=== PATIENT | male | born 1980 | race Two or more races ===

== ENCOUNTER 2016-12-30 21:21 | Inpatient (IN) | payer SELFPAY ==
[~2016-12-30] VITALS: Ht 175.3 cm; Wt 79.4 kg
[2016-12-30] MEDS ORDERED: Cefepime HCl 1 GM in NS 55 ML IV STA (21:38)
[2016-12-30] MEDS ORDERED: metroNIDAZOLE 500mg 100 ML IV STA (21:38)
[2016-12-30] MEDS ORDERED: Vancomycin 1 GM in NS 275 ML IV ONE (21:45)
[2016-12-30] MEDS ORDERED: HYDROmorphone 1 MG in NS 55 ML IV ONE (21:45)
[2016-12-30] MEDS ORDERED: HYDROmorphone 1mg/ml Carpuject ONE (22:13)
[2016-12-30] MEDS ORDERED: HYDROmorphone 1mg/ml Carpuject IVP ONE ×2 (22:15→23:30)
[2016-12-30 22:19] VITALS: BP 150/118
[2016-12-30] MEDS ORDERED: Cefepime 1gm vial ONE (22:22)
[2016-12-30 22:35] LABS: APPEARANCE,URINE CLEAR; KETONES,URINE NEGATIVE (NEGATIVE); LEUKOCYTE ESTERASE ,URINE 1+ (NEGATIVE); MEAN CORPUSCULAR HEMOGLOBIN 29.4 PG (27.0-31.0); MEAN CORPUSCULAR HGB CONC 33.8 G/DL (32.0-36.0); MEAN CORPUSCULAR VOLUME 87 FL (80-99); MEAN PLATELET VOLUME 7.9 FL (6.5-10.1); NITRITE,URINE NEGATIVE (NEGATIVE); PH,URINE 9 (4.5-8.0); PLATELET COUNT 131 K/UL (150-450); PROTEIN,URINE NEGATIVE (NEGATIVE); RED BLOOD COUNT 3.95 M/UL (4.70-6.10); RED CELL DISTRIBUTION WIDTH 15.8 % (11.6-14.8); UROBILINOGEN,URINE NORMAL MG/DL (0.0-1.0)
[2016-12-30 22:42] LABS: PROTHROMBIN TIME 10.2 SEC (9.30-11.50)
[2016-12-30 22:45] LABS: WHITE BLOOD COUNT 27.2 K/UL (4.8-10.8)
[2016-12-30 22:48] LABS: RBC,URINE 0-2 /HPF (0 - 0)
[2016-12-30 22:49] LABS: BACTERIA,URINE FEW /HPF
[2016-12-30 22:52] LABS: ALANINE AMINOTRANSFERASE 39 U/L (3-41); ALBUMIN/GLOBULIN RATIO 1.3 (1.0-2.7); ANION GAP 20 (5-15); ASPARTATE AMINO TRANSFERASE 53 U/L (5-40); CALCIUM 10.3 mg/dL (8.6-10.2); CARBON DIOXIDE 24 mEQ/L (20-30); CHLORIDE 94 mEQ/L (98-107); CREATININE 0.9 mg/dL (0.7-1.2); GLOMERULAR FILTRATION RATE > 60 mL/min (>60); HEMOLYSIS 44; LIPASE 17 U/L (< 60); POTASSIUM 3.9 mEQ/L (3.4-4.9); SODIUM 138 mEQ/L (135-145); TOTAL PROTEIN 8.2 g/dL (6.6-8.7)
[2016-12-30 22:57] LABS: REFLEX LACTIC ACID YES OR NO YES
[2016-12-30 23:17] LABS: BASOPHILS % (MANUAL) 2 % (0-2); LYMPHOCYTES % (MANUAL) 8 % (20-45); NEUTROPHILS % (MANUAL) 7 % (45-75); TOTAL CELLS COUNTED 100
[2016-12-30 23:18] LABS: ANISOCYTOSIS 1+; BAND NEUTROPHILS % (MANUAL) 0 % (0-8); BLAST% 77 % (0-0); EOSINOPHILS % (MANUAL) 0 % (0-3); HYPOCHROMASIA 1+; NUCLEATED RED BLOOD CELLS 4 /100 WBC; PLATELET ESTIMATE DECREASED; PLATELET MORPHOLOGY NORMAL
[2016-12-30 23:19] LABS: PATH BLOOD SMEAR/OMC SENT TO PATHOLOGIST
[2016-12-30 23:35] VITALS: BP 136/84
[2016-12-31] VITALS (8 sets, daily range): BP systolic 115–150; BP diastolic 61–100
[2016-12-31] MEDS ORDERED: NKM (00:09)
[2016-12-31] MEDS ORDERED: Vancomycin 1gm inj IVPB ONE (00:18)
[2016-12-31] MEDS ORDERED: Zolpidem 5mg tab ORAL PRN (01:00)
[2016-12-31] MEDS ORDERED: HYDROmorphone 1mg/ml Carpuject IVP PRN (01:00)
[2016-12-31] MEDS ORDERED: Vancomycin 1.5 GM in D5W 325 ML IVPB SCH (01:30)
--- NOTE | 2016-12-31 02:13 | Emergency Room Report ---
History of Present Illness General Chief Complaint: Abdominal Pain Source: Family Member Present Illness HPI 36-year-old male presents ED for evaluation. Patient states she's been having abdominal pain times one day. Pain is left-sided, 10 out of 10, nonradiating. Denies nausea or vomiting. Denies fevers or chills. Denies chest pain or shortness of breath. Patient has history of AML; patient last of blood work shows markedly elevated white count above baseline. No other aggravating or relieving factors. Denies any other associated symptoms Allergies: Coded Allergies: No Known Allergies (Unverified , 12/30/16) Patient History Past Medical History: other - AML Past Surgical History: none Pertinent Family History: none Social History: Denies: alcohol use, drug use, smoking Immunizations: UTD Reviewed Nursing Documentation: PMH: Agreed, PSxH: Agreed Review of Systems All Other Systems: negative except mentioned in HPI Physical Exam Vital Signs Date Time Temp Pulse Resp B/P Pulse Ox O2 Delivery O2 Flow Rate FiO2 12/30/16 21:27 98.2 77 20 138/85 96 Room Air Sp02 EP Interpretation: reviewed, normal General Appearance: alert, GCS 15, non-toxic, mild distress Head: normocephalic, atraumatic Eyes: bilateral eye PERRL, bilateral eye normal inspection ENT: hearing grossly normal, normal pharynx, no angioedema, normal voice Neck: full range of motion, supple/symm/no masses Respiratory: chest non-tender, lungs clear, normal breath sounds, speaking full sentences Cardiovascular #1: regular rate, rhythm, no edema Cardiovascular #2: 2+ carotid (R), 2+ carotid (L), 2+ radial (R), 2+ radial (L) , 2+ dorsalis pedis (R), 2+ dorsalis pedis (L) Gastrointestinal: normal bowel sounds, soft, non-distended, no guarding, no rebound, tenderness Rectal: deferred Genitourinary: normal inspection, no CVA tenderness Musculoskeletal: back normal, gait/station normal, normal range of motion, non- tender Neurologic: alert, oriented x3, responsive, motor strength/tone normal, sensory intact, speech normal Psychiatric: judgement/insight normal, memory normal, mood/affect normal, no suicidal/homicidal ideation Reflexes: 3+ bicep (R), 3+ bicep (L), 3+ tricep (R), 3+ tricep (L), 3+ knee (R) , 3+ knee (L) Skin: normal color, no rash, warm/dry, well hydrated Lymphatic: no adenopathy Medical Decision Making Diagnostic Impression: Primary Impression: Abdominal pain Qualified Codes: R10.32 - Left lower quadrant pain Additional Impressions: Leukemia Qualified Codes: C95.90 - Leukemia, unspecified not having achieved remission Sepsis Qualified Codes: A41.9 - Sepsis, unspecified organism Enteritis ER Course Hospital Course 36-year-old male presents to ED with left-sided abdominal pain. History of leukemia Differential diagnoses include: sepsis, splenomegaly, obstruction Clinical course Patient placed on stretcher. compliance monitor. After initial history and physical I ordered labs, IV fluids, UA, pain medication and CT scan Labs - marked leukocytosis, Hb/Hct stable. electrolytres ok, lactate 2.7 EKG - NSR, no acute changes interpreted by ne CT shows some edema surrounding the left adrenal gland. Small bowel thickening suggestive of enteritis Patient given 30 cc/kg fluid bolus. Given broad-spectrum antibiotics Case discussed with Dr. Dominguez and he agreed to accept the patient to his service for further care and support I feel this is a highly complex case requiring extensive working including EKG/ Rhythm strip, Xray/CT/US, Blood/urine lab work, repeat exams while in ED, and administration of strong opiates/narcotics for pain control, admission to hospital or close patient follow up. Diagnosis - abdominal pain, leukemia, sepsis, enteritis Patient admitted to floor in serious condition Labs Test 12/30/16 21:50 12/30/16 23:12 White Blood Count 27.2 K/UL (4.8-10.8) Red Blood Count 3.95 M/UL (4.70-6.10) Hemoglobin 11.6 G/DL (14.2-18.0) Hematocrit 34.3 % (42.0-52.0) Mean Corpuscular Volume 87 FL (80-99) Mean Corpuscular Hemoglobin 29.4 PG (27.0-31.0) Mean Corpuscular Hemoglobin Concent 33.8 G/DL (32.0-36.0) Red Cell Distribution Width 15.8 % (11.6-14.8) Platelet Count 131 K/UL (150-450) Mean Platelet Volume 7.9 FL (6.5-10.1) Neutrophils (%) (Auto) % (45.0-75.0) Lymphocytes (%) (Auto) % (20.0-45.0) Monocytes (%) (Auto) % (1.0-10.0) Eosinophils (%) (Auto) % (0.0-3.0) Basophils (%) (Auto) % (0.0-2.0) Differential Total Cells Counted 100 Neutrophils % (Manual) 7 % (45-75) Lymphocytes % (Manual) 8 % (20-45) Monocytes % (Manual) 6 % (1-10) Eosinophils % (Manual) 0 % (0-3) Basophils % (Manual) 2 % (0-2) Blast Cells % 77 % (0-0) Band Neutrophils 0 % (0-8) Nucleated Red Blood Cells 4 /100 WBC Platelet Estimate Decreased Platelet Morphology Normal Hypochromasia 1+ Anisocytosis 1+ Prothrombin Time 10.2 SEC (9.30-11.50) Prothromb Time International Ratio 1.0 (0.9-1.1) Activated Partial Thromboplast Time 26 SEC (23-33) Urine Color Pale yellow Urine Appearance Clear Urine pH 9 (4.5-8.0) Urine Specific [place] 1.010 (1.005-1.035) Urine Protein Negative (NEGATIVE) Urine Glucose (UA) Negative (NEGATIVE) Urine Ketones Negative (NEGATIVE) Urine Occult Blood Negative (NEGATIVE) Urine Nitrite Negative (NEGATIVE) Urine Bilirubin Negative (NEGATIVE) Urine Urobilinogen Normal MG/DL (0.0-1.0) Urine Leukocyte Esterase 1+ (NEGATIVE) Urine RBC 0-2 /HPF (0 - 0) Urine WBC 2-4 /HPF (0 - 0) Urine Squamous Epithelial Cells None /LPF (NONE/OCC) Urine Bacteria Few /HPF (NONE) Sodium Level 138 mEQ/L (135-145) Potassium Level 3.9 mEQ/L (3.4-4.9) Chloride Level 94 mEQ/L (98-107) Carbon Dioxide Level 24 mEQ/L (20-30) Anion Gap 20 (5-15) Blood Urea Nitrogen 13 mg/dL (7-23) Creatinine 0.9 mg/dL (0.7-1.2) Estimat Glomerular Filtration Rate > 60 mL/min (>60) Glucose Level 131 mg/dL (74-106) Lactic Acid Level 2.70 mmol/L (0.66-2.22) 1.70 mmol/L (0.66-2.22) Calcium Level 10.3 mg/dL (8.6-10.2) Total Bilirubin 0.3 mg/dL (0.0-1.2) Aspartate Amino Transf (AST/SGOT) 53 U/L (5-40) Alanine Aminotransferase (ALT/SGPT) 39 U/L (3-41) Alkaline Phosphatase 109 U/L (40-129) Pro-B-Type Natriuretic Peptide 175 pg/mL (0-125) Total Protein 8.2 g/dL (6.6-8.7) Albumin 4.7 g/dL (3.5-5.2) Globulin 3.5 g/dL Albumin/Globulin Ratio 1.3 (1.0-2.7) Lipase 17 U/L (< 60) EKG Diagnostic Results Rate: normal Rhythm: NSR ST Segments: no acute changes ASA given to the pt in ED: No Rhythm Strip Diag. Results EP Interpretation: yes Rhythm: NSR, no PVC's, no ectopy CT/MRI/US Diagnostic Results CT/MRI/US Diagnostic Results : Imaging Test Ordered: CT A/P Impression Edema surrounding the left adrenal gland. Small bowel thickening suggestive of enteritis Last Vital Signs Date Time Temp Pulse Resp B/P Pulse Ox O2 Delivery O2 Flow Rate FiO2 12/31/16 01:48 98.2 85 19 118/81 95 Room Air Status: improved Disposition: ADMITTED INPATIENT Condition: Serious Referrals: ROSY DOMINGUEZ (PCP) GIRISH PEACOCK M.D. Dec 31, 2016 02:13
[2016-12-31] MEDS: NS w/KCl 20mEq 1,000 ML IV SCH ×3 (03:27→20:38)
[2016-12-31] MEDS ORDERED: HYDROmorphone 1mg/ml Carpuject IVP ONE (06:00)
[2016-12-31] MEDS: metroNIDAZOLE 500mg 100 ML IVPB SCH ×3 (06:11→21:36)
[2016-12-31] MEDS: HYDROmorphone 1mg/ml Carpuject IVP PRN ×2 (08:47→11:36)
[2016-12-31] MEDS ORDERED: Heparin 5000 units/ml inj SUBQ SCH (09:00)
[2016-12-31] MEDS ORDERED: Cefepime HCl 1 GM in D5W 55 ML IVPB SCH ×2 (09:00→22:00)
--- NOTE | 2016-12-31 09:05 | Diagnostic Imaging Report ---
Clinical Indication: Abdominal pain, left lower quadrant pain, nausea, history of leukemia Technique: Patient given oral contrast. IV administration nonionic contrast. Venous phase spiral acquisition obtained through the abdomen and pelvis. Multiplanar reconstructions were generated. Total dose length product 1092 mGycm. CTDIvol(s) 17 mGy. Dose reduction achieved using automated exposure control Comparison: None Findings: Normal appendix. No evidence of diverticulosis or diverticulitis. No small bowel distention or small bowel wall thickening. The distal esophagus, stomach, duodenum are unremarkable. The gallbladder is surgically absent. The liver, bile ducts, pancreas are unremarkable. The spleen is borderline enlarged, measuring 13 cm long axis dimension. There is inflammation of the fat surrounding the left adrenal, and the left adrenal is diffusely somewhat prominent. The fat infiltration also abuts the upper pole of left kidney, but appears more closely related to the adrenal. The right adrenal is unremarkable. The kidneys are unremarkable. No retroperitoneal or mesenteric mass or adenopathy. No pelvic mass or adenopathy. The included lung bases demonstrate considerable posterior dependent atelectatic change. The heart is upper limits of normal in size. There is a calcified granuloma in the inferior left upper lobe. The bones are unremarkable. Impression: Unusual finding of thickening of the left adrenal with surrounding inflammatory change. This is a very unusual finding, inflammation or infection of the left adrenal should be considered. No other acute or significant abnormality demonstrated Borderline splenic Evidence of prior cholecystectomy graft bilateral basilar pulmonary parenchymal atelectatic changes Old granulomatous disease at the left lung base. This agrees with the preliminary interpretation provided overnight by [facility] teleradiology service. The CT scanner at [facility] is accredited by the [employer] and the scans are performed using protocols designed to limit radiation exposure to as low as reasonably achievable to attain images of sufficient resolution adequate for diagnostic evaluation.
[2016-12-31] MEDS: Vancomycin 1.5 GM in D5W 325 ML IVPB SCH ×2 (09:44→21:35)
--- NOTE | 2016-12-31 14:33 | Diagnostic Imaging Report ---
Indication: Chest pain Technique: One view of the chest Comparison: none Findings: Lungs and pleural spaces are clear. Heart size is normal. Inspiration is suboptimal Impression: No acute process
--- NOTE | 2016-12-31 16:17 | History & Physical ---
History and Physical History & Physicial Dictated for Int Med no. [id number]. ROSY DOMINGUEZ Dec 31, 2016 16:17
--- NOTE | 2016-12-31 16:19 | GI Initial Consult Note ---
History of Present Illness General Date patient seen: Dec 31, 2016 Time patient seen: 11:00 Reason for Hospitalization: Abdominal Pain Referring physician: JEFF DOMINGUEZ Reason for Consultation: ABDOMINAL PAIN Present Illness HPI 36-year-old male presents ED for evaluation. Patient states she's been having abdominal pain times one day. Pain is left-sided, 10 out of 10, nonradiating. Denies nausea or vomiting. Denies fevers or chills. Denies chest pain or shortness of breath. Patient has history of AML; patient last of blood work shows markedly elevated white count above baseline. No other aggravating or relieving factors. Denies any other associated symptoms GI Consult. HPI as noted above. GI consulted for abdominal pain with preliminary dx of enteritis on CT. Pt was seen on floor, awake A&Ox4 NAD with c /o of LUQ pain tender to touch. He presents today with leukocytosis WBC 27, anemia and transaminitis. APCT reviewed "no small bowel distention or small bowel wall thickening. The distal esophagus, stomach, duodenum are unremarkable. In addition, Unusual finding of thickening of the left adrenal with surrounding inflammatory change. This is a very unusual finding, inflammation or infection of the left adrenal should be considered". Lipase was unremarkable. This patient has no history of endoscopic procedures. Home Meds Reported Medications No Known Medications* (NKM - No Known Medications*) ., 0 ., 0 Refills 12/31/16 Med list reviewed/reconciled: Yes Allergies: Coded Allergies: No Known Allergies (Unverified , 12/30/16) Patient History History Provided By: Patient, Medical Record PMH Narrative Past Medical History: other - AML Past Surgical History: none Pertinent Family History: none Social History: Denies: alcohol use, drug use, smoking Immunizations: UTD Reviewed Nursing Documentation: PMH: Agreed, PSxH: Agreed Social History: Denies: alcohol use, drug use, other, smoking Review of Systems All Other Systems: negative except mentioned in HPI Physical Exam Vital Signs Date Time Temp Pulse Resp B/P Pulse Ox O2 Delivery O2 Flow Rate FiO2 12/30/16 21:27 98.2 77 20 138/85 96 Room Air Sp02 EP Interpretation: reviewed Labs Laboratory Tests Test 12/30/16 21:50 12/30/16 23:12 White Blood Count 27.2 K/UL (4.8-10.8) *H Red Blood Count 3.95 M/UL (4.70-6.10) L Hemoglobin 11.6 G/DL (14.2-18.0) L Hematocrit 34.3 % (42.0-52.0) L Mean Corpuscular Volume 87 FL (80-99) Mean Corpuscular Hemoglobin 29.4 PG (27.0-31.0) Mean Corpuscular Hemoglobin Concent 33.8 G/DL (32.0-36.0) Red Cell Distribution Width 15.8 % (11.6-14.8) H Platelet Count 131 K/UL (150-450) L Mean Platelet Volume 7.9 FL (6.5-10.1) Neutrophils (%) (Auto) % (45.0-75.0) Lymphocytes (%) (Auto) % (20.0-45.0) Monocytes (%) (Auto) % (1.0-10.0) Eosinophils (%) (Auto) % (0.0-3.0) Basophils (%) (Auto) % (0.0-2.0) Differential Total Cells Counted 100 Neutrophils % (Manual) 7 % (45-75) L Lymphocytes % (Manual) 8 % (20-45) L Monocytes % (Manual) 6 % (1-10) Eosinophils % (Manual) 0 % (0-3) Basophils % (Manual) 2 % (0-2) Blast Cells % 77 % (0-0) *H Band Neutrophils 0 % (0-8) Nucleated Red Blood Cells 4 /100 WBC Platelet Estimate Decreased L Platelet Morphology Normal Hypochromasia 1+ Anisocytosis 1+ Prothrombin Time 10.2 SEC (9.30-11.50) Prothromb Time International Ratio 1.0 (0.9-1.1) Activated Partial Thromboplast Time 26 SEC (23-33) Urine Color Pale yellow Urine Appearance Clear Urine pH 9 (4.5-8.0) Urine Specific [place] 1.010 (1.005-1.035) Urine Protein Negative (NEGATIVE) Urine Glucose (UA) Negative (NEGATIVE) Urine Ketones Negative (NEGATIVE) Urine Occult Blood Negative (NEGATIVE) Urine Nitrite Negative (NEGATIVE) Urine Bilirubin Negative (NEGATIVE) Urine Urobilinogen Normal MG/DL (0.0-1.0) Urine Leukocyte Esterase 1+ (NEGATIVE) H Urine RBC 0-2 /HPF (0 - 0) H Urine WBC 2-4 /HPF (0 - 0) Urine Squamous Epithelial Cells None /LPF (NONE/OCC) Urine Bacteria Few /HPF (NONE) Sodium Level 138 mEQ/L (135-145) Potassium Level 3.9 mEQ/L (3.4-4.9) Chloride Level 94 mEQ/L (98-107) L Carbon Dioxide Level 24 mEQ/L (20-30) Anion Gap 20 (5-15) H Blood Urea Nitrogen 13 mg/dL (7-23) Creatinine 0.9 mg/dL (0.7-1.2) Estimat Glomerular Filtration Rate > 60 mL/min (>60) Glucose Level 131 mg/dL (74-106) H Lactic Acid Level 2.70 mmol/L (0.66-2.22) H 1.70 mmol/L (0.66-2.22) Calcium Level 10.3 mg/dL (8.6-10.2) H Total Bilirubin 0.3 mg/dL (0.0-1.2) Aspartate Amino Transf (AST/SGOT) 53 U/L (5-40) H Alanine Aminotransferase (ALT/SGPT) 39 U/L (3-41) Alkaline Phosphatase 109 U/L (40-129) Pro-B-Type Natriuretic Peptide 175 pg/mL (0-125) H Total Protein 8.2 g/dL (6.6-8.7) Albumin 4.7 g/dL (3.5-5.2) Globulin 3.5 g/dL Albumin/Globulin Ratio 1.3 (1.0-2.7) Lipase 17 U/L (< 60) General Appearance: well appearing, no apparent distress, alert Head: normocephalic EENT: PERRL/EOMI, normal ENT inspection Neck: supple Respiratory: normal breath sounds, no respiratory distress Cardiovascular: normal rate Gastrointestinal: normal inspection, non tender, soft, normal bowel sounds Musculoskeletal: normal inspection, back normal Neurologic: normal inspection, alert, oriented x3, responsive Psychiatric: normal inspection, judgement/insight normal, memory normal Skin: normal inspection, normal color, no rash, warm/dry Lymphatic: normal inspection, no adenopathy Current Medications Current Medications Medications (Trade) Dose Ordered Sig/[place] Route PRN Reason Start Time Stop Time Status Last Admin Dose Admin Acetaminophen (Tylenol) 650 mg Q4H PRN ORAL Mild Pain (Pain Scale 1-3) 12/31/16 01:00 01/30/17 00:59 Cefepime HCl/ Dextrose (Maxipime/D5W) 55 ml @ 110 mls/hr Q12H IVPB 12/31/16 22:00 01/07/17 21:59 Dextrose (Dextrose 50%) STAT PRN IV Hypoglycemia 12/31/16 01:00 01/30/17 00:59 Diphenhydramine HCl (Benadryl) 25 mg Q6H PRN ORAL Itching/Pruritis 12/31/16 01:00 01/30/17 00:59 Heparin Sodium (Porcine) (Heparin 5000 units/ml) 5,000 units EVERY 12 HOURS SUBQ 12/31/16 09:00 01/30/17 08:59 UNV Hydromorphone HCl (Dilaudid) 2 mg Q3H PRN IVP Shortness of breath 12/31/16 14:36 01/07/17 14:35 12/31/16 14:21 Metronidazole 100 ml @ 100 mls/hr Q8HR IVPB 12/31/16 06:00 01/07/17 05:59 12/31/16 13:20 Ondansetron HCl (Zofran) 4 mg EVERY 4 HOURS PRN IVP Nausea & Vomiting 12/31/16 01:00 01/30/17 00:59 Pantoprazole (Protonix) 40 mg DAILY ORAL 12/31/16 09:00 01/30/17 08:59 12/31/16 08:17 Sodium Chloride (NS w/KCl 20mEq) 1,000 ml @ 75 mls/hr [id number] IV 12/31/16 01:52 01/30/17 01:51 12/31/16 15:23 Vancomycin HCl 1.5 gm/Dextrose 325 ml @ 162.5 mls/ hr Q12H IVPB 12/31/16 09:00 01/05/17 08:59 12/31/16 09:44 Vancomycin HCl 1 ea 1 ea DAILY PRN MISC Per rx protocol 12/31/16 01:00 01/30/17 00:59 Zolpidem Tartrate (Ambien) 10 mg HSPRN PRN ORAL Insomnia 12/31/16 01:00 01/30/17 00:59 GI: Plan Problems: (1) Anemia (2) Abdominal pain (3) Enteritis (4) Leukemia (5) Sepsis Plan APCT reviewed >> Unusual finding of thickening of the left adrenal with surrounding inflammatory change. This is a very unusual finding, inflammation or infection of the left adrenal should be considered. No other acute or significant abnormality demonstrated. lipase WNL FLD, adv as tolerated pain mgmt abx monitor H&H, transfuse prn OB stool r/o GI bleed fu cdiff & stool studies H2B monitor LFTs fu labs Discussed with Dr. Duke. Thank you for referring this patient, we will follow. Rosangela Kaiser N.P. Dec 31, 2016 16:19
[2016-12-31 16:55] LABS: MEAN CORPUSCULAR HEMOGLOBIN 29.3 PG (27.0-31.0); MEAN CORPUSCULAR HGB CONC 34.7 G/DL (32.0-36.0); MEAN CORPUSCULAR VOLUME 84 FL (80-99); MEAN PLATELET VOLUME 7.8 FL (6.5-10.1); PLATELET COUNT 79 K/UL (150-450); RED BLOOD COUNT 3.45 M/UL (4.70-6.10); RED CELL DISTRIBUTION WIDTH 15.9 % (11.6-14.8)
[2016-12-31 16:59] LABS: WHITE BLOOD COUNT 37.2 K/UL (4.8-10.8)
[2016-12-31 17:04] LABS: ANION GAP 17 (5-15); CALCIUM 9.4 mg/dL (8.6-10.2); CARBON DIOXIDE 25 mEQ/L (20-30); CHLORIDE 94 mEQ/L (98-107); CREATININE 0.8 mg/dL (0.7-1.2); GLOMERULAR FILTRATION RATE > 60 mL/min (>60); HEMOLYSIS 2; POTASSIUM 3.6 mEQ/L (3.4-4.9); SODIUM 136 mEQ/L (135-145)
[2016-12-31 18:31] LABS: BAND NEUTROPHILS % (MANUAL) 2 % (0-8); BLAST% 85 % (0-0); LYMPHOCYTES % (MANUAL) 4 % (20-45); NEUTROPHILS % (MANUAL) 6 % (45-75); NUCLEATED RED BLOOD CELLS 1 /100 WBC; TOTAL CELLS COUNTED 100
[2016-12-31 18:32] LABS: ANISOCYTOSIS 1+; BASOPHILS % (MANUAL) 0 % (0-2); EOSINOPHILS % (MANUAL) 0 % (0-3); HYPOCHROMASIA 1+; PLATELET ESTIMATE DECREASED; PLATELET MORPHOLOGY NORMAL
--- NOTE | 2016-12-31 20:31 | History and Physical Report ---
DATE OF ADMISSION: 12/30/2016 CHIEF COMPLAINT: The patient is a 36-year-old male with history of acute myelogenous lymphoma presents with complaint of abdominal pain. HISTORY OF PRESENT ILLNESS: Began on 12/29/2016. The patient began to experience left-sided abdominal pain. The pain was diffuse. The patient states it felt like burning. The patient states the pain got worse on . Pain is now associated with nausea and vomiting. The patient also complaining of 10/10 left upper quadrant pain. The patient presented to [place] emergency room. The patient was admitted for left upper quadrant pain to rule out small obstruction versus gastroenteritis. PAST MEDICAL HISTORY: Significant for acute myelogenous leukemia, diagnosed in 2016. The patient has undergone four different types of chemotherapy in [place]. The patient is currently being followed at Hematology/Oncology at [facility]. The patient was just started a new chemotherapy regimen in [facility] this week. PAST SURGICAL HISTORY: Significant for cholecystectomy. CURRENT MEDICATIONS: The patient denies. ALLERGIES: No known drug allergies. 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 The patient denies tobacco or alcohol use. FAMILY HISTORY: Significant for Parkinson disease in the patient's mother. Family history significant for coronary artery disease in the patient's father at age 80. REVIEW OF SYSTEMS: Constitutional: The patient denies weight loss or weight gain. The patient complains of subjective fevers and chills. HEENT: The patient denies ear or throat pain. The patient denies headache. Cardiovascular: The patient denies palpitation or chest pain. Chest: The patient denies wheeze or shortness of breath. Abdomen: The patient complains of left upper and flank pain. The patient denies constipation. The patient complains of nausea and vomiting. The patient denies diarrhea. Genitourinary: The patient denies dysuria or increased frequency of urination. Neuromuscular: The patient denies seizures or generalized weakness. PHYSICAL EXAMINATION: VITAL SIGNS: Temperature 97.2 degrees, respirations 20, pulse 91, and blood pressure 140/80. GENERAL: The patient is well-developed and well-nourished white male, who is drowsy but arousable. HEENT: Eyes, pupils are equal and responsive to light and accommodation. Extraocular movements are intact. NECK: Supple without lymphadenopathy. CHEST: Lungs are clear to auscultation bilaterally without wheezes or rales. CARDIOVASCULAR: Slightly tachycardic. Regular rhythm. S1 and S2 normal without murmurs, rubs, or gallops. ABDOMEN: Soft, diffusely tender, and distended with decreased bowel sounds. No evidence of hepatosplenomegaly. No rebound or guarding. EXTREMITIES: Negative for clubbing, cyanosis, or edema. RECTAL: Refused. GENITAL: Refused. NEUROLOGIC: Cranial nerves II through XII are grossly intact without focal deficits. Motor strength is 5/5 bilaterally. Deep tendon reflexes are 2+ plantar. LABORATORY STUDIES: WBC 27.2, hemoglobin 11.6, hematocrit 34.2, and platelets 131,000. Sodium 138, potassium 3.9, chloride 94, CO2 24, BUN 13, creatinine 0.9, and glucose 131. Lactic acid elevated at 2.70. Urinalysis showed 1+ leukocyte esterase. CT scan of the abdomen and pelvis revealed left adrenal thickening and regional inflammation versus infection of the small bowel with thickening. ASSESSMENT: This is a 36-year-old male with, 1. Left upper quadrant abdominal pain. 2. Left flank pain. 3. Nausea with vomiting. 4. Leukocytosis. 5. Small bowel enteritis. 6. Left adrenal inflammation. 7. Acute myelogenous leukemia. TREATMENT: 1. Abdominal pain the left upper quadrant/left flank. A Gastroenterology consultation has been obtained with Dr. Cluadio Duke. The patient has been started empirically on intravenous vancomycin, cefepime, and Flagyl. We will follow recommendations of Gastroenterology. A Clostridium difficile titer is pending. A stool culture is pending. 2. Leukocytosis may be secondary to acute myelogenous leukemia versus reactive secondary to enteritis as above. 3. Enteritis as above. A Gastroenterology consultation has been obtained with Dr. Claudio Duke . Stool cultures are pending. Clostridium difficile is pending. 4. Left adrenal inflammation as above. The patient has been started empirically on intravenous vancomycin, cefepime, and Flagyl. A Nephrology consultation has been obtained with Dr. Nicholas. An ultrasound of bilateral kidneys are pending. 5. Acute myelogenous leukemia. Hematology and Oncology consultation with Dr. Glass. As above, the patient has been followed at [facility] by Dr. . The patient may need transfer to [facility] if need . Attila Wang M.D. DR: Kevin JOB#: [id number] CC:
--- NOTE | 2016-12-31 21:46 | Consultation ---
DATE OF CONSULTATION: 12/31/2016 HEMATOLOGY/ONCOLOGY CONSULTATION REQUESTING PHYSICIAN: Attila Wang M.D. REASON FOR CONSULTATION: Evaluation of acute myelogenous leukemia. IDENTIFICATION: Dear Dr. Attila Wang, The patient is a pleasant 36-year-old male who has been seen by Dr. Glass. The patient is a 36-year-old male who flew in from [place] several weeks ago, noted to have recent diagnosis of acute myelogenous leukemia. Further records are in the office; therefore, most of history is currently obtained from the chart. Dr. Attila Wang's note is pending at this moment. The patient presented with abdominal pain, 10/10 with elevated white count. Denies any chest pain, shortness of breath. History of ML again noted from before. The patient had a consult with GI service and enteritis was noted on CAT scan. The patient is awake, alert, and oriented x4, complaining of left upper quadrant pain, tender to touch. Hematology service was consulted for myelogenous leukemia history. PAST MEDICAL HISTORY: Acute myelogenous leukemia recently diagnosed, pending chemotherapy at [facility], Dr. Nadya Briscoe. PAST SURGICAL HISTORY: None noted. HOME MEDICATIONS: None. ALLERGIES: No known drug allergies. SOCIAL HISTORY: No alcohol, tobacco, or illicit drug use. FAMILY HISTORY: Noncontributory REVIEW OF SYSTEMS: Constitutional: No fever, chills, or night sweats. Skin: No rashes, lumps, or itching. HEENT: No headache, hearing, or vision changes. Breasts: No lumps, pain, or discharge. Pulmonary: No cough, sputum, or shortness of breath. Cardiovascular: No chest pain, tightness, or palpitations. Gastrointestinal: No nausea, vomiting, or diarrhea. Genitourinary: No dysuria, frequency, or urgency. Musculoskeletal: No joint swelling, muscle pain, or trauma. PHYSICAL EXAMINATION: GENERAL: The patient is in no acute distress. VITAL SIGNS: Reviewed. PULMONARY: Decreased breath sounds bilaterally. No crackles noted. CARDIOVASCULAR: Regular rhythm. No S3 or S4. GASTROINTESTINAL: Abdomen is soft; however, some tenderness to palpation in the left upper quadrant. EXTREMITIES: No cyanosis, clubbing, or edema. LABORATORY AND DIAGNOSTIC DATA: WBC of 30,000, hemoglobin 11.6, hematocrit 34, and platelet count of 131,000. ASSESSMENT: 1. Acute myelogenous leukemia, to receive chemotherapy with bone marrow transplant. Bone marrow transplant at [facility] at approximately a week with Dr. Nadya Briscoe. 2. Anemia secondary to acute myelogenous leukemia. 3. Anemia secondary to hemodilution. 4. Abdominal pain with enteritis. 5. Please review closely antibiotics. 6. Please start antibiotics given immunosuppressive state. 7. Please consider ID consult. 8. Sepsis, currently is on antibiotics. 9. Thrombocytopenia likely secondary to underlying acute myelogenous leukemia as well. 10. Glucose elevation of 131. 11. Lactic acidosis, improved. 12. Discussed with staff. Thank you, Dr. Attila Wang, for this kind referral. Please do not hesitate to contact me if you have any further questions. Bob Glass M.D. DR: Syed JOB#: [id number] CC:
--- NOTE | 2016-12-31 22:01 | Consultation ---
Consult Note Consult Note ID [id number] CARMELA HAWTHORNE M.D. Dec 31, 2016 22:01
--- NOTE | 2016-12-31 22:17 | Nephrology Progress Note ---
Assessment/Plan Problem List: (1) Anemia (2) Leukemia (3) Abdominal pain (4) Enteritis (5) Sepsis Assessment: ?? Elev WBC poss d/t AML Plan Will monitor renal function. Avoid nephrotoxic medications. Monitor I/O's. Will follow. thank.s Subjective Subjective 36 y/o m with hx AML undergoing chemotx now presents with abdominal pain/flank pain. Renal consulted for possible pyelonephritis. Objective Objective Last 24 Hour Vital Signs Date Time Temp Pulse Resp B/P Pulse Ox O2 Delivery O2 Flow Rate FiO2 12/31/16 19:25 97.7 99 19 121/79 91 Room Air 12/31/16 18:02 97.5 12/31/16 15:56 97.5 66 19 115/61 98 Room Air 12/31/16 12:35 97.0 79 19 130/77 93 Room Air 12/31/16 12:06 96.6 12/31/16 08:00 96.6 78 18 149/91 96 Room Air 12/31/16 04:00 98.1 87 18 146/100 96 Room Air 12/31/16 02:00 97.2 91 20 140/88 95 Room Air 12/31/16 01:48 98.2 85 19 118/81 95 Room Air 12/31/16 01:39 98.2 85 19 118/81 95 Room Air 12/31/16 00:05 97.2 12/30/16 23:35 98.2 88 21 136/84 96 Room Air 12/30/16 22:45 97.2 12/30/16 22:19 98.2 83 17 150/118 96 Room Air Intake and Output 12/30/16 12/31/16 19:00 07:00 Intake Total 3180 ml Output Total 1600 ml Balance 1580 ml IV Total 3180 ml Output Urine Total 1600 ml # Voids 1 Laboratory Tests 12/30/16 23:12: Lactic Acid Level 1.70 12/31/16 16:35: White Blood Count 37.2*H, Red Blood Count 3.45L, Hemoglobin 10.1L, Hematocrit 29.1L, Mean Corpuscular Volume 84, Mean Corpuscular Hemoglobin 29.3, Mean Corpuscular Hemoglobin Concent 34.7, Red Cell Distribution Width 15.9H, Platelet Count 79L, Mean Platelet Volume 7.8, Neutrophils (%) (Auto) , Lymphocytes (%) (Auto) , Monocytes (%) (Auto) , Eosinophils (%) (Auto) , Basophils (%) (Auto) , Differential Total Cells Counted 100, Neutrophils % ( Manual) 6L, Lymphocytes % (Manual) 4L, Monocytes % (Manual) 3, Eosinophils % ( Manual) 0, Basophils % (Manual) 0, Blast Cells % 85*H, Band Neutrophils 2, Nucleated Red Blood Cells 1, Platelet Estimate DecreasedL, Platelet Morphology Normal, Hypochromasia 1+, Anisocytosis 1+, Sodium Level 136, Potassium Level 3.6 , Chloride Level 94L, Carbon Dioxide Level 25, Anion Gap 17H, Blood Urea Nitrogen 8, Creatinine 0.8, Estimat Glomerular Filtration Rate > 60, Glucose Level 131H, Calcium Level 9.4 Height (Feet): 5 Height (Inches): 9.00 Weight (Pounds): 175 General Appearance: no apparent distress Cardiovascular: normal rate, regular rhythm Respiratory/Chest: lungs clear Abdomen: soft Extremities: non-pitting Neurologic: alert, oriented x 3 JONA ABRROW Dec 31, 2016 22:17
--- NOTE | 2017-01-01 00:46 | Consultation ---
DATE OF CONSULTATION: INFECTIOUS DISEASE CONSULTATION CONSULTING PHYSICIAN: Marbin Huerta M.D. REQUESTING PHYSICIAN: Attila Wang M.D. REASON FOR CONSULTATION: Evaluation of the patient for enteritis and antibiotic management. HISTORY OF PRESENT ILLNESS: The patient is a 36-year-old male, overall poor historian, who was admitted to this medical center due to abdominal pain in the left upper quadrant. The patient has a history of AML (acute myelogenous leukemia). The patient is under . An Infectious Disease consultation has been requested for further evaluation of the patient. PAST MEDICAL HISTORY: As mentioned above. PAST SURGICAL HISTORY: Significant for cholecystectomy. ALLERGIES: No known drug allergies. SOCIAL HISTORY: The patient is . No history of alcohol or drug abuse. FAMILY HISTORY: Not contributing. REVIEW OF SYSTEMS: HEENT: No recent change in vision or hearing. Pulmonary: No cough or shortness of breath. Cardiovascular: No chest pain or palpitation. Gastrointestinal/Abdomen: No nausea, vomiting, or diarrhea. PHYSICAL EXAMINATION: VITAL SIGNS: Temperature 97 degrees, blood pressure 140/80, pulse 86, and respiratory rate 18. HEENT: Mild pale conjunctiva. No icterus. NECK: No lymphadenopathy. CHEST: Coarse breath sounds. HEART: S1 and S2. ABDOMEN: Soft. The patient has mild left upper quadrant tenderness. NEUROLOGIC: Awake and alert. LABORATORY DATA: White blood cells 27, hemoglobin 11, and platelets 151,000. BUN 13 and creatinine 0.9. UA unremarkable. CT of the abdomen shows left adrenal gland thickening associated with inflammation. ASSESSMENT: 1. The patient is a 36-year-old male with leukocytosis due to acute myelogenous leukemia. 2. History of . 3. Left upper quadrant pain. CT scan showed evidence of left adrenal inflammation, less likely to be an infectious process. PLAN: 1. We will continue the patient on IV vancomycin and cefepime. 2. Monitor blood cultures. 3. Monitor stool culture. 4. Stool for C. diff. 5. Based on the patient's clinical course and labs, we will do further recommendations. Thank you, Dr. Wang, for allowing me to participate in the care of this patient. I will follow the patient with you during this hospitalization. Marbin Huerta M.D. DR: CAIO JOB#: [id number] CC:
[2017-01-01 04:24] VITALS: BP_SYST 100; BP_SYST 125; BP_DIAS 55; BP_DIAS 70
[2017-01-01] MEDS: metroNIDAZOLE 500mg 100 ML IVPB SCH (05:10)
[2017-01-01 06:57] LABS: MEAN CORPUSCULAR HEMOGLOBIN 28.8 PG (27.0-31.0); MEAN CORPUSCULAR HGB CONC 33.2 G/DL (32.0-36.0); MEAN CORPUSCULAR VOLUME 87 FL (80-99); MEAN PLATELET VOLUME 9.4 FL (6.5-10.1); PLATELET COUNT 81 K/UL (150-450); RED BLOOD COUNT 3.63 M/UL (4.70-6.10); RED CELL DISTRIBUTION WIDTH 15.9 % (11.6-14.8)
[2017-01-01 07:00] LABS: WHITE BLOOD COUNT 47.8 K/UL (4.8-10.8)
[2017-01-01 07:21] LABS: ANION GAP 19 (5-15); CALCIUM 9.5 mg/dL (8.6-10.2); CARBON DIOXIDE 25 mEQ/L (20-30); CHLORIDE 89 mEQ/L (98-107); CREATININE 0.9 mg/dL (0.7-1.2); GLOMERULAR FILTRATION RATE > 60 mL/min (>60); HEMOLYSIS 1; POTASSIUM 3.4 mEQ/L (3.4-4.9); SODIUM 133 mEQ/L (135-145)
[2017-01-01 07:26] LABS: HEMOLYSIS 4; IRON 37 ug/dL (59-158); TOTAL IRON BINDING CAPACITY 238 ug/dL (250-400)
[2017-01-01 08:19] VITALS: BP 137/98
--- NOTE | 2017-01-01 09:18 | Infectious Diseases Prog Note ---
Assessment/Plan Assessment/Plan A: The patient is a 36-year-old male ? Enteritis pt has no diarrhea at this time Left upper quadrant pain CT : Left adrenal gland thickening associated with inflammation ( doubt ID process, ? related to leukemia ) tachycardia Anemia Thrombocytopenia Leukocytosis due to acute myelogenous leukemia . PLAN: cont on cefepime and Flagyl d# 2 , ( may stop soon ) DC IV vancomycin d#2 Monitor blood cultures. Monitor stool culture. Stool for C. diff HIV Blood cx ( AFB and Fungal ) Histoplasma Ag andAb Rec Endo consult Hem/onc following Cardio following Echo and Doppler of lower Ext Subjective Allergies: Coded Allergies: No Known Allergies (Unverified , 12/30/16) Subjective acute onset Tachycardia Objective Vital Signs Last 24 Hour Vital Signs Date Time Temp Pulse Resp B/P Pulse Ox O2 Delivery O2 Flow Rate FiO2 01/01/17 08:19 98.4 123 22 137/98 95 Room Air 01/01/17 04:24 98.0 75 21 100/55 97 Room Air 12/31/16 19:25 97.7 99 19 121/79 91 Room Air 12/31/16 18:02 97.5 12/31/16 15:56 97.5 66 19 115/61 98 Room Air 12/31/16 12:35 97.0 79 19 130/77 93 Room Air 12/31/16 12:06 96.6 Height (Feet): 5 Height (Inches): 9.00 Weight (Pounds): 175 HEENT: anicteric Respiratory/Chest: no respiratory distress Cardiovascular: regularly irregular Abdomen: non distended Microbiology Date/Time Source Procedure Growth Status 12/30/16 21:50 Blood Blood Culture - Preliminary NO GROWTH AFTER 24 HOURS Resulted 12/30/16 21:30 Blood Blood Culture - Preliminary NO GROWTH AFTER 24 HOURS Resulted Laboratory Tests Test 12/31/16 16:35 01/01/17 04:50 01/01/17 08:30 White Blood Count 37.2 K/UL (4.8-10.8) *H 47.8 K/UL (4.8-10.8) *H Red Blood Count 3.45 M/UL (4.70-6.10) L 3.63 M/UL (4.70-6.10) L Hemoglobin 10.1 G/DL (14.2-18.0) L 10.4 G/DL (14.2-18.0) L Hematocrit 29.1 % (42.0-52.0) L 31.4 % (42.0-52.0) L Mean Corpuscular Volume 84 FL (80-99) 87 FL (80-99) Mean Corpuscular Hemoglobin 29.3 PG (27.0-31.0) 28.8 PG (27.0-31.0) Mean Corpuscular Hemoglobin Concent 34.7 G/DL (32.0-36.0) 33.2 G/DL (32.0-36.0) Red Cell Distribution Width 15.9 % (11.6-14.8) H 15.9 % (11.6-14.8) H Platelet Count 79 K/UL (150-450) L 81 K/UL (150-450) L Mean Platelet Volume 7.8 FL (6.5-10.1) 9.4 FL (6.5-10.1) Neutrophils (%) (Auto) % (45.0-75.0) % (45.0-75.0) Lymphocytes (%) (Auto) % (20.0-45.0) % (20.0-45.0) Monocytes (%) (Auto) % (1.0-10.0) % (1.0-10.0) Eosinophils (%) (Auto) % (0.0-3.0) % (0.0-3.0) Basophils (%) (Auto) % (0.0-2.0) % (0.0-2.0) Differential Total Cells Counted 100 Neutrophils % (Manual) 6 % (45-75) L Pending Lymphocytes % (Manual) 4 % (20-45) L Pending Monocytes % (Manual) 3 % (1-10) Eosinophils % (Manual) 0 % (0-3) Basophils % (Manual) 0 % (0-2) Blast Cells % 85 % (0-0) *H Band Neutrophils 2 % (0-8) Nucleated Red Blood Cells 1 /100 WBC Platelet Estimate Decreased L Pending Platelet Morphology Normal Pending Hypochromasia 1+ Anisocytosis 1+ Sodium Level 136 mEQ/L (135-145) 133 mEQ/L (135-145) L Potassium Level 3.6 mEQ/L (3.4-4.9) 3.4 mEQ/L (3.4-4.9) Chloride Level 94 mEQ/L (98-107) L 89 mEQ/L (98-107) L Carbon Dioxide Level 25 mEQ/L (20-30) 25 mEQ/L (20-30) Anion Gap 17 (5-15) H 19 (5-15) H Blood Urea Nitrogen 8 mg/dL (7-23) 7 mg/dL (7-23) Creatinine 0.8 mg/dL (0.7-1.2) 0.9 mg/dL (0.7-1.2) Estimat Glomerular Filtration Rate > 60 mL/min (>60) > 60 mL/min (>60) Glucose Level 131 mg/dL (74-106) H 113 mg/dL (74-106) H Calcium Level 9.4 mg/dL (8.6-10.2) 9.5 mg/dL (8.6-10.2) Iron Level 37 ug/dL (59-158) L Total Iron Binding Capacity 238 ug/dL (250-400) L Percent Iron Saturation 16 % (15-50) Unsaturated Iron Binding 201 ug/dL (112-346) Vancomycin Level Trough Pending Current Medications Medications (Trade) Dose Ordered Sig/Idalia Route PRN Reason Start Time Stop Time Status Last Admin Dose Admin Acetaminophen (Tylenol) 650 mg Q4H PRN ORAL Mild Pain (Pain Scale 1-3) 12/31/16 01:00 01/30/17 00:59 Cefepime HCl/ Dextrose (Maxipime/D5W) 55 ml @ 110 mls/hr Q12H IVPB 12/31/16 22:00 01/07/17 21:59 12/31/16 23:43 Dextrose (Dextrose 50%) STAT PRN IV Hypoglycemia 12/31/16 01:00 01/30/17 00:59 Diphenhydramine HCl (Benadryl) 25 mg Q6H PRN ORAL Itching/Pruritis 12/31/16 01:00 01/30/17 00:59 Hydromorphone HCl (Dilaudid) 3 mg Q3H PRN IVP mod-sev pain 12/31/16 23:36 01/07/17 23:35 01/01/17 05:58 Metronidazole 100 ml @ 100 mls/hr Q8HR IVPB 12/31/16 06:00 01/07/17 05:59 01/01/17 05:10 Ondansetron HCl (Zofran) 4 mg EVERY 4 HOURS PRN IVP Nausea & Vomiting 12/31/16 01:00 01/30/17 00:59 01/01/17 07:31 Pantoprazole (Protonix) 40 mg DAILY ORAL 12/31/16 09:00 01/30/17 08:59 01/01/17 07:55 Sodium Chloride (NS w/KCl 20mEq) 1,000 ml @ 75 mls/hr [id number] IV 12/31/16 01:52 01/30/17 01:51 12/31/16 20:38 Vancomycin HCl 1.5 gm/Dextrose 325 ml @ 162.5 mls/ hr Q12H IVPB 12/31/16 09:00 01/05/17 08:59 12/31/16 21:35 Vancomycin HCl 1 ea 1 ea DAILY PRN MISC Per rx protocol 12/31/16 01:00 01/30/17 00:59 Zolpidem Tartrate (Ambien) 10 mg HSPRN PRN ORAL Insomnia 12/31/16 01:00 01/30/17 00:59 CARMELA HAWTHORNE M.D. Jan 01, 2017 09:18
[2017-01-01] MEDS ORDERED: Hydroxyurea 500mg cap ORAL SCH ×2 (09:30)
[2017-01-01 09:50] LABS: ANISOCYTOSIS 1+; BAND NEUTROPHILS % (MANUAL) 0 % (0-8); BASOPHILS % (MANUAL) 0 % (0-2); BLAST% 82 % (0-0); EOSINOPHILS % (MANUAL) 0 % (0-3); HYPOCHROMASIA 1+; LYMPHOCYTES % (MANUAL) 8 % (20-45); NEUTROPHILS % (MANUAL) 6 % (45-75); NUCLEATED RED BLOOD CELLS 1 /100 WBC; PLATELET ESTIMATE DECREASED; PLATELET MORPHOLOGY NORMAL; TOTAL CELLS COUNTED 100
[2017-01-01] MEDS ORDERED: NS w/KCl 20mEq 1,000 ML IV SCH (10:00)
[2017-01-01] MEDS ORDERED: Cefepime HCl 1 GM in D5W 55 ML IVPB SCH (10:00)
--- NOTE | 2017-01-01 10:09 | Diagnostic Imaging Report ---
Indication: Acute renal failure, left-sided abdominal pain Technique: Grayscale and duplex images of the kidneys, retroperitoneum, and bladder were obtained. Comparison:Reference made to abdomen pelvis CT dated 12/30/2016 Findings: Right kidney measures 12.8 cm in length. Left kidney measures 12.6 cm in length. Both kidneys demonstrate normal echogenicity. No hydronephrosis. No focal abnormality. Poorly visualized inferior vena cava. Bladder is normal. 8mm prostate Impression: negative. Note inability to visualize inferior vena cava.
--- NOTE | 2017-01-01 10:50 | Cardiology Progress Note ---
Assessment/Plan Assessment/Plan acute onset of Sinus tachy leukemia with sig blast periadrenal inflammatory process of unknown etiology thrombocytopenia anemia no sx to suggest PE, however the etiology of the sinus tahcy of relatively sudden in onset is of concern fawad have venous duplex echo [id number] Objective Last 24 Hour Vital Signs Date Time Temp Pulse Resp B/P Pulse Ox O2 Delivery O2 Flow Rate FiO2 01/01/17 08:19 98.4 123 22 137/98 95 Room Air 01/01/17 04:24 98.0 75 21 100/55 97 Room Air 12/31/16 19:25 97.7 99 19 121/79 91 Room Air 12/31/16 18:02 97.5 12/31/16 15:56 97.5 66 19 115/61 98 Room Air 12/31/16 12:35 97.0 79 19 130/77 93 Room Air 12/31/16 12:06 96.6 Intake and Output 12/31/16 01/01/17 19:00 07:00 Intake Total 1560.0 ml 1345.0 ml Output Total 1150 ml Balance 1560.0 ml 195.0 ml Intake Oral 500 ml 240 ml IV Total 1060.0 ml 1105.0 ml Output Urine Total 1150 ml # Voids 6 Laboratory Tests Test 12/31/16 16:35 01/01/17 04:50 01/01/17 08:30 White Blood Count 37.2 K/UL (4.8-10.8) *H 47.8 K/UL (4.8-10.8) *H Red Blood Count 3.45 M/UL (4.70-6.10) L 3.63 M/UL (4.70-6.10) L Hemoglobin 10.1 G/DL (14.2-18.0) L 10.4 G/DL (14.2-18.0) L Hematocrit 29.1 % (42.0-52.0) L 31.4 % (42.0-52.0) L Mean Corpuscular Volume 84 FL (80-99) 87 FL (80-99) Mean Corpuscular Hemoglobin 29.3 PG (27.0-31.0) 28.8 PG (27.0-31.0) Mean Corpuscular Hemoglobin Concent 34.7 G/DL (32.0-36.0) 33.2 G/DL (32.0-36.0) Red Cell Distribution Width 15.9 % (11.6-14.8) H 15.9 % (11.6-14.8) H Platelet Count 79 K/UL (150-450) L 81 K/UL (150-450) L Mean Platelet Volume 7.8 FL (6.5-10.1) 9.4 FL (6.5-10.1) Neutrophils (%) (Auto) % (45.0-75.0) % (45.0-75.0) Lymphocytes (%) (Auto) % (20.0-45.0) % (20.0-45.0) Monocytes (%) (Auto) % (1.0-10.0) % (1.0-10.0) Eosinophils (%) (Auto) % (0.0-3.0) % (0.0-3.0) Basophils (%) (Auto) % (0.0-2.0) % (0.0-2.0) Differential Total Cells Counted 100 100 Neutrophils % (Manual) 6 % (45-75) L 6 % (45-75) L Lymphocytes % (Manual) 4 % (20-45) L 8 % (20-45) L Monocytes % (Manual) 3 % (1-10) 4 % (1-10) Eosinophils % (Manual) 0 % (0-3) 0 % (0-3) Basophils % (Manual) 0 % (0-2) 0 % (0-2) Blast Cells % 85 % (0-0) *H 82 % (0-0) *H Band Neutrophils 2 % (0-8) 0 % (0-8) Nucleated Red Blood Cells 1 /100 WBC 1 /100 WBC Platelet Estimate Decreased L Decreased L Platelet Morphology Normal Normal Hypochromasia 1+ 1+ Anisocytosis 1+ 1+ Sodium Level 136 mEQ/L (135-145) 133 mEQ/L (135-145) L Potassium Level 3.6 mEQ/L (3.4-4.9) 3.4 mEQ/L (3.4-4.9) Chloride Level 94 mEQ/L (98-107) L 89 mEQ/L (98-107) L Carbon Dioxide Level 25 mEQ/L (20-30) 25 mEQ/L (20-30) Anion Gap 17 (5-15) H 19 (5-15) H Blood Urea Nitrogen 8 mg/dL (7-23) 7 mg/dL (7-23) Creatinine 0.8 mg/dL (0.7-1.2) 0.9 mg/dL (0.7-1.2) Estimat Glomerular Filtration Rate > 60 mL/min (>60) > 60 mL/min (>60) Glucose Level 131 mg/dL (74-106) H 113 mg/dL (74-106) H Calcium Level 9.4 mg/dL (8.6-10.2) 9.5 mg/dL (8.6-10.2) Iron Level 37 ug/dL (59-158) L Total Iron Binding Capacity 238 ug/dL (250-400) L Percent Iron Saturation 16 % (15-50) Unsaturated Iron Binding 201 ug/dL (112-346) Histoplasma Mycelial Antibody Pending Histoplasma Antibody w Mycelial Ag Pending Histoplasma Antibody with Yeast Ag Pending HIV (1&2) Antibody Rapid Negative (NEGATIVE) Vancomycin Level Trough 8.7 ug/mL (5.0-12.0) Microbiology Date/Time Source Procedure Growth Status 12/30/16 21:50 Blood Blood Culture - Preliminary NO GROWTH AFTER 24 HOURS Resulted 12/30/16 21:30 Blood Blood Culture - Preliminary NO GROWTH AFTER 24 HOURS Resulted PAT VASQUEZ Jan 01, 2017 10:50
[2017-01-01 11:04] LABS: OTHERS PATHOLOGIST COMMENT
--- NOTE | 2017-01-01 11:40 | Diagnostic Imaging Report ---
Indication: DYSPNEA Technique: One view of the chest Comparison: 12/30/2016 Findings: There is right perihilar atelectasis. The lungs and pleural spaces are otherwise clear. Heart size is normal., The residual bowel contrast from prior CT scan is noted Impression: Right perihilar atelectasis. No acute process otherwise
[2017-01-01 12:00] VITALS: BP 128/78
--- NOTE | 2017-01-01 13:05 | GI Progress Note ---
Assessment/Plan Problems: (1) Sepsis ICD Codes: A41.9 - Sepsis, unspecified organism SNOMED: 88592208 Qualifiers: Qualified Codes: A41.9 - Sepsis, unspecified organism (2) Enteritis ICD Codes: K52.9 - Noninfective gastroenteritis and colitis, unspecified SNOMED: 38127510 (3) Leukemia ICD Codes: C95.90 - Leukemia, unspecified not having achieved remission SNOMED: 92935393 Qualifiers: Qualified Codes: C95.90 - Leukemia, unspecified not having achieved remission (4) Anemia ICD Codes: D64.9 - Anemia, unspecified SNOMED: 780988951 (5) Abdominal pain ICD Codes: R10.9 - Unspecified abdominal pain SNOMED: 40160575 Qualifiers: Qualified Codes: R10.32 - Left lower quadrant pain Status: not improved Status Narrative Discussed with Dr. Duke. Assessment/Plan APCT reviewed >> Unusual finding of thickening of the left adrenal with surrounding inflammatory change. This is a very unusual finding, inflammation or infection of the left adrenal should be considered. No other acute or significant abnormality demonstrated. lipase WNL increasing WBC adv to regular diet pain mgmt zofran prn, consider reglan if pt has persistent vomiting abx monitor H&H, transfuse prn OB stool r/o GI bleed fu cdiff & stool studies H2B monitor LFTs fu labs Subjective Subjective diaphoretic minimal abdominal pain N/V Objective Last 24 Hour Vital Signs Date Time Temp Pulse Resp B/P Pulse Ox O2 Delivery O2 Flow Rate FiO2 01/01/17 12:00 97.7 109 17 128/78 93 Nasal Cannula 3.0 01/01/17 11:17 98.4 01/01/17 08:19 98.4 123 22 137/98 95 Room Air 01/01/17 04:24 98.0 75 21 100/55 97 Room Air 12/31/16 19:25 97.7 99 19 121/79 91 Room Air 12/31/16 18:02 97.5 12/31/16 15:56 97.5 66 19 115/61 98 Room Air Intake and Output 12/31/16 01/01/17 19:00 07:00 Intake Total 1560.0 ml 1345.0 ml Output Total 1150 ml Balance 1560.0 ml 195.0 ml Intake Oral 500 ml 240 ml IV Total 1060.0 ml 1105.0 ml Output Urine Total 1150 ml # Voids 6 Laboratory Tests Test 12/31/16 16:35 01/01/17 04:50 01/01/17 08:30 01/01/17 11:30 White Blood Count 37.2 K/UL (4.8-10.8) *H 47.8 K/UL (4.8-10.8) *H Red Blood Count 3.45 M/UL (4.70-6.10) L 3.63 M/UL (4.70-6.10) L Hemoglobin 10.1 G/DL (14.2-18.0) L 10.4 G/DL (14.2-18.0) L Hematocrit 29.1 % (42.0-52.0) L 31.4 % (42.0-52.0) L Mean Corpuscular Volume 84 FL (80-99) 87 FL (80-99) Mean Corpuscular Hemoglobin 29.3 PG (27.0-31.0) 28.8 PG (27.0-31.0) Mean Corpuscular Hemoglobin Concent 34.7 G/DL (32.0-36.0) 33.2 G/DL (32.0-36.0) Red Cell Distribution Width 15.9 % (11.6-14.8) H 15.9 % (11.6-14.8) H Platelet Count 79 K/UL (150-450) L 81 K/UL (150-450) L Mean Platelet Volume 7.8 FL (6.5-10.1) 9.4 FL (6.5-10.1) Neutrophils (%) (Auto) % (45.0-75.0) % (45.0-75.0) Lymphocytes (%) (Auto) % (20.0-45.0) % (20.0-45.0) Monocytes (%) (Auto) % (1.0-10.0) % (1.0-10.0) Eosinophils (%) (Auto) % (0.0-3.0) % (0.0-3.0) Basophils (%) (Auto) % (0.0-2.0) % (0.0-2.0) Differential Total Cells Counted 100 100 Neutrophils % (Manual) 6 % (45-75) L 6 % (45-75) L Lymphocytes % (Manual) 4 % (20-45) L 8 % (20-45) L Monocytes % (Manual) 3 % (1-10) 4 % (1-10) Eosinophils % (Manual) 0 % (0-3) 0 % (0-3) Basophils % (Manual) 0 % (0-2) 0 % (0-2) Blast Cells % 85 % (0-0) *H 82 % (0-0) *H Band Neutrophils 2 % (0-8) 0 % (0-8) Nucleated Red Blood Cells 1 /100 WBC 1 /100 WBC Platelet Estimate Decreased L Decreased L Platelet Morphology Normal Normal Hypochromasia 1+ 1+ Anisocytosis 1+ 1+ Sodium Level 136 mEQ/L (135-145) 133 mEQ/L (135-145) L Potassium Level 3.6 mEQ/L (3.4-4.9) 3.4 mEQ/L (3.4-4.9) Chloride Level 94 mEQ/L (98-107) L 89 mEQ/L (98-107) L Carbon Dioxide Level 25 mEQ/L (20-30) 25 mEQ/L (20-30) Anion Gap 17 (5-15) H 19 (5-15) H Blood Urea Nitrogen 8 mg/dL (7-23) 7 mg/dL (7-23) Creatinine 0.8 mg/dL (0.7-1.2) 0.9 mg/dL (0.7-1.2) Estimat Glomerular Filtration Rate > 60 mL/min (>60) > 60 mL/min (>60) Glucose Level 131 mg/dL (74-106) H 113 mg/dL (74-106) H Calcium Level 9.4 mg/dL (8.6-10.2) 9.5 mg/dL (8.6-10.2) Iron Level 37 ug/dL (59-158) L Total Iron Binding Capacity 238 ug/dL (250-400) L Percent Iron Saturation 16 % (15-50) Unsaturated Iron Binding 201 ug/dL (112-346) Histoplasma Mycelial Antibody Pending Histoplasma Antibody w Mycelial Ag Pending Histoplasma Antibody with Yeast Ag Pending HIV (1&2) Antibody Rapid Negative (NEGATIVE) Vancomycin Level Trough 8.7 ug/mL (5.0-12.0) Histoplasma Antigen Pending Height (Feet): 5 Height (Inches): 9.00 Weight (Pounds): 175 General Appearance: no apparent distress, alert Cardiovascular: normal rate Respiratory/Chest: normal breath sounds, no respiratory distress Abdominal Exam: normal bowel sounds, non tender, soft Rosangela Kaiser N.P. Jan 01, 2017 13:05
[2017-01-01] MEDS ORDERED: Metoclopramide 10mg/2ml Inj IVP PRN (13:45)
--- NOTE | 2017-01-01 13:53 | General Progress Note ---
Assessment/Plan Assessment/Plan 1. Acute myelogenous leukemia, to receive chemotherapy with bone marrow transplant. Bone marrow transplant at [facility] at approximately a week with Dr. Nadya Briscoe. ----> WBC increasing---> begin hydrea today 1gm po bID ----> pt is being transferred to [facility] 2. Anemia secondary to acute myelogenous leukemia. 3. Anemia secondary to hemodilution. 4. Abdominal pain with enteritis. 5. Please review closely antibiotics. 6. Please start antibiotics given immunosuppressive state. 7. Please consider ID consult. 8. Sepsis, currently is on antibiotics. 9. Thrombocytopenia likely secondary to underlying acute myelogenous leukemia as well. 10. Glucose elevation of 131. 11. Lactic acidosis, improved. 12. Nausea and vomiting ---> zofran prn Subjective Constitutional: Reports: diaphoresis HEENT: Reports: no symptoms Cardiovascular: Reports: no symptoms Respiratory: Reports: no symptoms Gastrointestinal/Abdominal: Reports: no symptoms Genitourinary: Reports: no symptoms Neurologic/Psychiatric: Reports: no symptoms Endocrine: Reports: no symptoms Hematologic/Lymphatic: Reports: anemia Allergies: Coded Allergies: No Known Allergies (Unverified , 12/30/16) Subjective acute onset tachy, diaphoretic Objective Last 24 Hour Vital Signs Date Time Temp Pulse Resp B/P Pulse Ox O2 Delivery O2 Flow Rate FiO2 01/01/17 12:00 97.7 109 17 128/78 93 Nasal Cannula 3.0 01/01/17 11:17 98.4 01/01/17 08:19 98.4 123 22 137/98 95 Room Air 01/01/17 04:24 98.0 75 21 100/55 97 Room Air 12/31/16 19:25 97.7 99 19 121/79 91 Room Air 12/31/16 18:02 97.5 12/31/16 15:56 97.5 66 19 115/61 98 Room Air Intake and Output 12/31/16 01/01/17 19:00 07:00 Intake Total 1560.0 ml 1345.0 ml Output Total 1150 ml Balance 1560.0 ml 195.0 ml Intake Oral 500 ml 240 ml IV Total 1060.0 ml 1105.0 ml Output Urine Total 1150 ml # Voids 6 Laboratory Tests 12/31/16 16:35: White Blood Count 37.2*H, Red Blood Count 3.45L, Hemoglobin 10.1L, Hematocrit 29.1L, Mean Corpuscular Volume 84, Mean Corpuscular Hemoglobin 29.3, Mean Corpuscular Hemoglobin Concent 34.7, Red Cell Distribution Width 15.9H, Platelet Count 79L, Mean Platelet Volume 7.8, Neutrophils (%) (Auto) , Lymphocytes (%) (Auto) , Monocytes (%) (Auto) , Eosinophils (%) (Auto) , Basophils (%) (Auto) , Differential Total Cells Counted 100, Neutrophils % ( Manual) 6L, Lymphocytes % (Manual) 4L, Monocytes % (Manual) 3, Eosinophils % ( Manual) 0, Basophils % (Manual) 0, Blast Cells % 85*H, Band Neutrophils 2, Nucleated Red Blood Cells 1, Platelet Estimate DecreasedL, Platelet Morphology Normal, Hypochromasia 1+, Anisocytosis 1+, Sodium Level 136, Potassium Level 3.6 , Chloride Level 94L, Carbon Dioxide Level 25, Anion Gap 17H, Blood Urea Nitrogen 8, Creatinine 0.8, Estimat Glomerular Filtration Rate > 60, Glucose Level 131H, Calcium Level 9.4 01/01/17 04:50: White Blood Count 47.8*H, Red Blood Count 3.63L, Hemoglobin 10.4L, Hematocrit 31.4L, Mean Corpuscular Volume 87, Mean Corpuscular Hemoglobin 28.8, Mean Corpuscular Hemoglobin Concent 33.2, Red Cell Distribution Width 15.9H, Platelet Count 81L, Mean Platelet Volume 9.4, Neutrophils (%) (Auto) , Lymphocytes (%) (Auto) , Monocytes (%) (Auto) , Eosinophils (%) (Auto) , Basophils (%) (Auto) , Differential Total Cells Counted 100, Neutrophils % ( Manual) 6L, Lymphocytes % (Manual) 8L, Monocytes % (Manual) 4, Eosinophils % ( Manual) 0, Basophils % (Manual) 0, Blast Cells % 82*H, Band Neutrophils 0, Nucleated Red Blood Cells 1, Platelet Estimate DecreasedL, Platelet Morphology Normal, Hypochromasia 1+, Anisocytosis 1+, Sodium Level 133L, Potassium Level 3.4, Chloride Level 89L, Carbon Dioxide Level 25, Anion Gap 19H, Blood Urea Nitrogen 7, Creatinine 0.9, Estimat Glomerular Filtration Rate > 60, Glucose Level 113H, Calcium Level 9.5, Iron Level 37L, Total Iron Binding Capacity 238L , Percent Iron Saturation 16, Unsaturated Iron Binding 201, Histoplasma Mycelial Antibody [Pending], Histoplasma Antibody w Mycelial Ag [Pending], Histoplasma Antibody with Yeast Ag [Pending], HIV (1&2) Antibody Rapid Negative 01/01/17 08:30: Vancomycin Level Trough 8.7 01/01/17 11:30: Histoplasma Antigen [Pending] Height (Feet): 5 Height (Inches): 9.00 Weight (Pounds): 175 General Appearance: mild distress EENT: normal ENT inspection Neck: normal alignment Cardiovascular: tachycardia Respiratory/Chest: chest wall non-tender Extremities: non-tender Skin: normal pigmentation Bob Glass Jan 01, 2017 13:53
[2017-01-01] MEDS ORDERED: metroNIDAZOLE 500mg 100 ML IVPB SCH (14:00)
[2017-01-01] MEDS ORDERED: Tubing IV Secondary IV ONE ×2 (14:51)
--- NOTE | 2017-01-01 15:23 | Diagnostic Imaging Report ---
Indications: 36-year-old male with tachypnea Technique: IV administration 6.2 mCi 99m technetium macroaggregated albumin. Images obtained over the lungs in multiple projections. Previously, patient inhaled 40 mCi aerosolized 99M technetium DTPA. Images obtained over the lungs in multiple projections Comparison: Reference made to chest radiograph is a 3017 Findings: There is slight heterogeneity to tracer distribution on the perfusion images, but no definite segmental or subsegmental perfusion defects are demonstrated. Aerosol images are also slightly heterogeneous, somewhat more so and perfusion images. No evidence of perfusion/aerosol mismatch demonstrated. Impression: Findings are deemed low probability for pulmonary embolus
--- NOTE | 2017-01-01 17:11 | Internal Med Progress Note ---
Subjective Date of Service: Jan 01, 2017 Physician Name Attila Dominguez Attending Physician Attila Dominguez Current Medications Medications (Trade) Dose Ordered Sig/Idalia Route PRN Reason Start Time Stop Time Status Last Admin Dose Admin Acetaminophen (Tylenol) 650 mg Q4H PRN ORAL Mild Pain (Pain Scale 1-3) 01/01/17 13:00 01/31/17 12:59 Cefepime HCl 1 gm/ Dextrose 55 ml @ 110 mls/hr Q12H IVPB 01/01/17 10:00 01/08/17 09:59 01/01/17 12:30 Dextrose (Dextrose 50%) STAT PRN IV Hypoglycemia 01/02/17 01:00 02/01/17 00:59 Diphenhydramine HCl (Benadryl) 25 mg Q6H PRN ORAL Itching/Pruritis 01/01/17 13:00 01/31/17 12:59 Hydromorphone HCl (Dilaudid) 3 mg Q3H PRN IVP mod-sev pain 01/01/17 11:45 01/08/17 11:44 01/01/17 10:47 Hydroxyurea (Hydrea) 1,000 mg TWICE A DAY ORAL 01/01/17 09:30 01/06/17 09:29 01/01/17 10:25 Metoclopramide HCl (Reglan) 10 mg Q6H PRN IVP Nausea & Vomiting 01/01/17 13:45 01/31/17 13:44 Metronidazole 100 ml @ 100 mls/hr Q8HR IVPB 01/01/17 14:00 01/08/17 13:59 Ondansetron HCl (Zofran) 4 mg EVERY 4 HOURS PRN IVP Nausea & Vomiting 01/01/17 13:00 01/31/17 12:59 01/01/17 12:57 Pantoprazole (Protonix) 40 mg DAILY ORAL 01/02/17 09:00 02/01/17 08:59 Sodium Chloride (NS w/KCl 20mEq) 1,000 ml @ 100 mls/hr Q10H IV 01/01/17 10:00 01/31/17 09:59 01/01/17 11:30 Zolpidem Tartrate (Ambien) 10 mg HSPRN PRN ORAL Insomnia 01/02/17 01:00 02/01/17 00:59 Allergies: Coded Allergies: No Known Allergies (Unverified , 12/30/16) ROS Limited/Unobtainable: No Constitutional: Reports: no symptoms HEENT: Reports: no symptoms Cardiovascular: Reports: no symptoms Respiratory: Reports: no symptoms Gastrointestinal/Abdominal: Reports: abdominal pain Genitourinary: Reports: no symptoms Neurologic/Psychiatric: Reports: no symptoms Subjective 36 YO M admitted with abdominal pain. Now enteritis and left adrenal inflammation. WBC today=47,800. Attempt to transfer to [facility] today. Objective Last Vital Signs Date Time Temp Pulse Resp B/P Pulse Ox O2 Delivery O2 Flow Rate FiO2 01/01/17 12:00 97.7 109 17 128/78 93 Nasal Cannula 3.0 General Appearance: WD/WN, alert, moderate distress EENT: PERRL/EOMI, normal ENT inspection Neck: non-tender, normal alignment, supple Cardiovascular: normal peripheral pulses, normal rate, regular rhythm, no gallop/murmur, no JVD Respiratory/Chest: chest wall non-tender, lungs clear, normal breath sounds, no respiratory distress, no accessory muscle use Abdomen: soft, no organomegaly, no mass, decreased bowel sounds, guarding, tender Extremities: normal range of motion Neurologic: enterprise systems architect II-XII grossly normal, no motor/sensory deficits Skin: normal pigmentation, warm/dry Laboratory Tests Test 01/01/17 04:50 01/01/17 08:30 01/01/17 11:30 White Blood Count 47.8 K/UL (4.8-10.8) *H Red Blood Count 3.63 M/UL (4.70-6.10) L Hemoglobin 10.4 G/DL (14.2-18.0) L Hematocrit 31.4 % (42.0-52.0) L Mean Corpuscular Volume 87 FL (80-99) Mean Corpuscular Hemoglobin 28.8 PG (27.0-31.0) Mean Corpuscular Hemoglobin Concent 33.2 G/DL (32.0-36.0) Red Cell Distribution Width 15.9 % (11.6-14.8) H Platelet Count 81 K/UL (150-450) L Mean Platelet Volume 9.4 FL (6.5-10.1) Neutrophils (%) (Auto) % (45.0-75.0) Lymphocytes (%) (Auto) % (20.0-45.0) Monocytes (%) (Auto) % (1.0-10.0) Eosinophils (%) (Auto) % (0.0-3.0) Basophils (%) (Auto) % (0.0-2.0) Differential Total Cells Counted 100 Neutrophils % (Manual) 6 % (45-75) L Lymphocytes % (Manual) 8 % (20-45) L Monocytes % (Manual) 4 % (1-10) Eosinophils % (Manual) 0 % (0-3) Basophils % (Manual) 0 % (0-2) Blast Cells % 82 % (0-0) *H Band Neutrophils 0 % (0-8) Nucleated Red Blood Cells 1 /100 WBC Platelet Estimate Decreased L Platelet Morphology Normal Hypochromasia 1+ Anisocytosis 1+ Sodium Level 133 mEQ/L (135-145) L Potassium Level 3.4 mEQ/L (3.4-4.9) Chloride Level 89 mEQ/L (98-107) L Carbon Dioxide Level 25 mEQ/L (20-30) Anion Gap 19 (5-15) H Blood Urea Nitrogen 7 mg/dL (7-23) Creatinine 0.9 mg/dL (0.7-1.2) Estimat Glomerular Filtration Rate > 60 mL/min (>60) Glucose Level 113 mg/dL (74-106) H Calcium Level 9.5 mg/dL (8.6-10.2) Iron Level 37 ug/dL (59-158) L Total Iron Binding Capacity 238 ug/dL (250-400) L Percent Iron Saturation 16 % (15-50) Unsaturated Iron Binding 201 ug/dL (112-346) Histoplasma Mycelial Antibody Pending Histoplasma Antibody w Mycelial Ag Pending Histoplasma Antibody with Yeast Ag Pending HIV (1&2) Antibody Rapid Negative (NEGATIVE) Vancomycin Level Trough 8.7 ug/mL (5.0-12.0) Histoplasma Antigen Pending Microbiology Date/Time Source Procedure Growth Status 12/30/16 21:50 Blood Blood Culture - Preliminary NO GROWTH AFTER 24 HOURS Resulted 12/30/16 21:30 Blood Blood Culture - Preliminary NO GROWTH AFTER 24 HOURS Resulted Intake and Output 12/31/16 01/01/17 19:00 07:00 Intake Total 1560.0 ml 1345.0 ml Output Total 1150 ml Balance 1560.0 ml 195.0 ml Intake Oral 500 ml 240 ml IV Total 1060.0 ml 1105.0 ml Output Urine Total 1150 ml # Voids 6 Assessment/Plan Problem List: (1) AML (acute myelogenous leukemia) Assessment & Plan: Worsening WBC ?blast crisis vs sepsis? See Onc note. Called [facility]-Dr Rowan Briscoe-attempt to transfer to [facility] today. Transfer center notified. (2) Adrenal injury Assessment & Plan: ?Infection? Continue cefepime, vanco and flagyl per ID (3) Leukocytosis Assessment & Plan: Due to AML ?blast crisis? Start hydrea per onc. (4) Nausea & vomiting Assessment & Plan: See GI note. (5) Abdominal pain Assessment & Plan: 02/11. Currently on IV dilaudid (6) Enteritis Assessment & Plan: See GI and ID note. Cont empiric cefepime, vanco and flagyl. C. Diff and stool cultures pending. Status: deteriorating Assessment/Plan Attempt to transfer to [facility] today. Spoke to Dr Rowan Briscoe at [facility] , who has accepted patient. Transfer Center at [facility] and [place] notified. ATTILA DOMINGUEZ Jan 01, 2017 17:11
--- NOTE | 2017-01-01 17:32 | Consultation ---
DATE OF CONSULTATION: 01/01/2017 CARDIOLOGY CONSULTATION CONSULTING PHYSICIAN: Nasir Fregoso M.D. REFERRING PHYSICIAN: Attila Wang M.D. REASON FOR REFERRAL: Tachycardia. HISTORY OF PRESENT ILLNESS: This is a very unfortunate 36-year-old male who has been diagnosed with leukemia, unknown type planned to be started on treatment at the [facility] . The patient presented to the hospital because of abdominal pain that started on Wednesday, today being Wednesday. He has been having this pain almost significantly improved over the past few days. He has had evaluation here at [facility] including CT scan which showed some inflammatory process around the left adrenal gland, but based on the CT scan and a lot of blasts. He was noted to have some tachycardia and has been transferred to the telemetry avila today and this consultation has been requested. The patient absolutely denies any chest pain or pressure, tightness, or heaviness in his chest. Does not have any shortness of breath with activity or with rest. No PND. because he has not had any appetite. PAST MEDICAL HISTORY: Positive for leukemia. Apparently, he has had a cholecystectomy before. ALLERGIES: He is not allergic to any medications. SOCIAL HISTORY: He does not smoke, drink, or use drugs. REVIEW OF SYSTEMS: Gastrointestinal: He has had some diarrhea apparently at some time, but not now. No bloody or black stools. Genitourinary: Denies. Pulmonary: Denies . Constitutional: He has had some night sweats, he is not sure about weight loss. Neurologic: Denies. PHYSICAL EXAMINATION: GENERAL: Shows to be a young gentleman, in no respiratory distress. NECK: Supple. No jugular venous distention noted. LUNGS: Appear to be clear to auscultation and percussion with decreased breath sounds on the left side. CARDIAC: Regular rhythm. Borderline tachycardic. No heaves, thrills, or gallops noted. ABDOMEN: Soft. No hepatosplenomegaly. EXTREMITIES: There is no clubbing, cyanosis, or edema. NEUROLOGIC: He is awake, alert, and responsive, and in no apparent distress. LABORATORY AND DIAGNOSTIC DATA: The patient's telemetry data from today shows heart rate of 122 consistent with sinus tachycardia. Previous EKG at the time of admission showed heart rate of 78, but sinus rhythm, being nonspecific T-wave abnormalities being noted. No incomplete left bundle-branch block or conduction delay however noted. CT scan has noted evidence of ____ left adrenal gland inflammatory process. The patient's laboratory values otherwise show white count of 47,000 up from 27,000. On admission, the white count is 10.4 down from 11.6 and platelet count of 81,000 down from 131,000 with 6 polys and 8 lymphocytes and 82 blasts being noted . Sodium is 132, potassium 3.4, creatinine 0.7, glucose is 113. His iron is 37 and TIBC of 28% with 16% saturation. Coags, INR is 1 and PTT of 26. Urinalysis unremarkable. His most recent vital signs, blood pressure 137/98, prior one is 100/55, temperature 98.4 degrees, heart rate has been in the 70s until just recently 125. ASSESSMENT AND PLAN: 1. Sinus tachycardia. 2. Leukemia with significant blasts. 3. Left adrenal inflammatory process. 4. Poor PO intake. 5. Thrombocytopenia and anemia. Dr. Wang, this patient was seen in cardiac consultation, no cardiac issues of significance noted at this time. Sinus tachycardia is probably secondary to the inflammatory process or volume depletion. He does not endorse any signs or symptoms of pulmonary embolism. Nevertheless, venous duplex study of the lower extremities will be ordered. An echocardiogram will also be ordered to rule out pulmonary hypertension or deep venous thrombosis. To begin with EKG will be ordered as none available since his prior admission. I will follow the patient along with you. Nasir Fregoso M.D. DR: NITZA JOB#: [id number] CC:
--- NOTE | 2017-01-01 18:49 | Cardiology Report ---
APPROVED REPORT EKG Measurement Heart [id number] [id number] Normal sinus rhythm Nonspecific T wave abnormality Prolonged QT Abnormal ECG
[2017-01-02] MEDS ORDERED: Zolpidem 5mg tab ORAL PRN (01:00)
--- NOTE | 2017-01-04 09:25 | Discharge Summary ---
Discharge Summary Hospital Course Date of Admission Dec 30, 2016 at 23:30 Date of Discharge Jan 01, 2017 at 14:52 Admitting Diagnosis abdominal pain, leukocytosis HPI Prem Graham is a 36 year old male who was admitted on Dec 30, 2016 at 23:30 for Abdominal Pain,Leukocytosis Hospital Course dc summary #[id number] Discharge Discharge Disposition Patient signed AMA Discharge Diagnoses: Discharge Instructions Discharge Instructions Special Instructions I have been assigned to complete a D/C Summary on this account. I was not involved in the patient management Vida Renee NP (Vanchtein) Jan 04, 2017 09:25
--- NOTE | 2017-01-04 09:31 | Cardiology Report ---
APPROVED REPORT EXAM: Two-dimensional and M-mode echocardiogram with Doppler and color Doppler. INDICATION Tachycardia M-Mode DIMENSIONS IVSd1.0 (0.7-1.1cm)Left Atrium (MM)3.9 (1.6-4.0cm) LVDd3.7 (3.5-5.6cm)Aortic Root3.2 (2.0-3.7cm) PWd1.0 (0.7-1.1cm)Aortic Cusp Exc.1.8 (1.5-2.0cm) LVDs2.4 (2.5-4.0cm) PWs1.8 cm Normal left ventricular chamber size, systolic function and wall motion. Left ventricular ejection fraction estimated to be 60-65 %. No evidence of left ventricular hypertrophy. Anterior Echo-free space, may be due to pericardial fat or effusion. All other cardiac chamber sizes are within normal limits. Aortic valve has three cusps with normal motion. Mildly thickened mitral valve leaflets with normal excursion. Mild mitral annulus and aortic root calcification. Normal pulmonic valve structure. Normal tricuspid valve structure. IVC at normal size with physiologic collapse. A color flow and spectral Doppler study was performed and revealed: No aortic regurgitation. Trace mitral regurgitation. Mitral inflow indicates normal left ventricular diastolic function. Mild tricuspid regurgitation. Tricuspid systolic velocities suggests peak right ventricular systolic pressure of 39 mmHg, consistent with mild pulmonary hypertension.
--- NOTE | 2017-01-04 10:32 | Discharge Summary 2 SIG ---
DATE OF ADMISSION: 12/30/2016 DATE OF SIGNING AGAINST MEDICAL ADVISE : 01/01/2017 REASON FOR ADMISSION: 36-year-old male with history of recently diagnosed acute myelogenous leukemia, presented to emergency department with complaint of abdominal pain. WBC - 27.2, hemoglobin -11.6, hematocrit -34.3, and blast cells - 77%. CT of the abdomen and pelvis revealed thickening of the left adrenal with surrounding inflammatory changes, consider inflammation or infection of the left adrenal. The patient admitted for further management. ADMITTING DIAGNOSES: abdominal pain possible sepsis enteritis acute myelogenous leukemia left adrenal inflammation anemia. HOSPITAL COURSE: The patient admitted. ID consult, Hematology, Oncology, Gastroenterology and Renal consult were requested. Per gastrointestinal specialist, the patient likely had enteritis. Lipase was within normal limits. LFTs were stable. Human immunodeficiency virus test was negative. The patient started on empiric antibiotics. ID specialist followed. Stool culture, stool for C. diff were ordered, however, not done. Blood culture preliminary negative. Leukocytosis, likely secondary to acute myelogenous leukemia. Antiemetic provided as needed. Diet was advanced as tolerated. The patient was on H2 ayala. Hemoglobin and hematocrit were closely monitored. Homicide Investigator/oncologist follows. WBC on 01/01/2017- 47.8, hemoglobin- 10.4, and hematocrit -31.4. The patient started on Hydrea 1 g p.o. b.i.d. The patient was prior to this admission scheduled to receive chemotherapy with bone marrow transplant at [facility] in approximately one week with Dr. Nadya Briscoe. The patient was placed on waiting list for transfer to [facility]. Abdominal pain was addressed and managed. A coke worker followed the patient due to the finding of the left adrenal inflammation. Renal parameters were stable. Recommended to avoid nephrotoxic. The patient was on the IV hydration. The patient noted to have tachycardia and Cardiology consult requested. According to supervisor sawmill, tachycardia was likely related to sepsis and infectious process and possibly mild dehydration. The patient was on the IV fluids. Nevertheless, basic cardiac workup was done. Troponin was negative. Echocardiogram revealed preserved ejection fraction of 60% to 65%, right ventricular pressure of 39 consistent with mild pulmonary hypertension. Venous duplex of bilateral lower extremity was negative. V/Q scan revealed no evidence of low probability of PE. Brother on the bedside on 01/01/2017 and even though both, patient and his brother were aware that the patient was on the waiting list for [facility], they made the decision to sign against medical advice and go to [facility] by themselves. Risk and consequences of signing against medical advice were discussed with the patient and his brother. However, the patient insisted on signing the form. FINAL DIAGNOSES: 1. Abdominal pain. 2. Possible sepsis. 3. Enteritis. 4. Acute myelogenous leukemia. 5. Left adrenal inflammation. 6. Anemia. Attila Wang M.D. I have been assigned to dictate discharge summary on this account and I was not involved in the patient's management. Vida ArizmendiBrunswick Hospital CenterEleazar N.PNoé DR: JOSE ANTONIO JOB#: [id number] CC: [place]
--- NOTE | 2017-01-04 13:41 | Diagnostic Imaging Report ---
APPROVED REPORT CPT Code: 34670 Present Symptoms Shortness of breath BILATERAL: Imaging reveals a patent deep venous system bilaterally. There is no evidence of thrombus within the femoral, popliteal or tibial segments. The greater saphenous veins are also within normal limits. Doppler indicates normal spontaneous flow within these segments.
[2017-01-06 01:09] LABS: HISTOPLASMA MYCELIAL ID AB Negative (Negative)
== END 2017-01-01 14:52 | disposition left against medical advice (07) | DRG 840 ==
LOC: EMR 21:48 → 4E 23:30 → EDBEDREQ 12-31 00:15 → 4W 12-31 00:53 → 2E 01-01 09:38
DX: C92.Z0 Other myeloid leukemia not having achieved remission (principal); A41.9 Sepsis, unspecified organism; E27.8 Other specified disorders of adrenal gland; D69.6 Thrombocytopenia, unspecified; I27.2 Other secondary pulmonary hypertension; K52.9 Noninfective gastroenteritis and colitis, unspecified; R10.9 Unspecified abdominal pain; D64.9 Anemia, unspecified; R00.0 Tachycardia, unspecified
CPT/HCPCS: 36415; 71010; 74177; 76775; 78579; 78580; 80048; 80053; 80202; 81003; 83540; 83550; 83605; 83690; 83880; 85007; 85025; 85060; 85610; 85730; 86171; 86703; 86850; 86900; 86901; 87040; 87385; 93005; 93306; 93970; A9503; J2405